=== PATIENT | female | born 1940 | race Caucasian/White ===

== ENCOUNTER 2024-07-23 16:42 | Inpatient (IN) | payer MEDICARE, SELFPAY ==
--- NOTE | 2024-07-23 16:45 | XRR_ITS ---
PROCEDURE INFORMATION: Exam: XR Left Hip Exam date and time: 07/23/2024 4:51 PM Age: 83 years old Clinical indication: Injury or trauma; Fall; Blunt trauma (contusions or hematomas); Left; Prior surgery; Surgery date: 6+ months; Surgery type: Lt hip; Additional info: Pain TECHNIQUE: Imaging protocol: Radiologic exam of the left hip. Views: 2 or 3 views hip with pelvis when performed. COMPARISON: CR XR hip LT 2-3V wo/w pel* [id number] 06/26/2019 9:41 AM FINDINGS: Bones/joints: Suspected left superior pubic ramus fracture. Intact left hip arthroplasty. Soft tissues: Unremarkable. XR/XR hip LT 2-3V wo/w pel* [id number] IMPRESSION: Suspected left superior pubic ramus fracture.
--- NOTE | 2024-07-23 16:49 | W.ED.GENADLT ---
Documented by User: Joshua Lugo DO 07/24/24 08:59 HPI - General Adult General: Chief complaint: ER Hold Stated complaint: Fall, Lac [place], L Hip pain Time Seen by Provider: 07/23/24 16:45 History of Present Illness: 83-year-old female presents to the emergency room after a ground-level mechanical fall at a local business she hit her forehead as she went down she denies any neck pain she is not on any anticoagulants. She is complaining some left hip pain she. Had a previous left hip arthroplasty. Denies any other injuries. No chest pain no abdominal pain. No dizziness lightheadedness or discomfort prior to the fall she simply stumbled as she came out of the bathroom Associated symptoms: Deny chest pain, dyspnea or rash Related Data Home Medications ?Medication ?Instructions ?Recorded ?Confirmed atorvastatin 20 mg tablet 20 mg PO DAILY 07/24/24 07/24/24 lisinopril 20 1 tab PO DAILY 07/24/24 07/24/24 mg-hydrochlorothiazide 12.5 mg tablet Review of Systems Const: Denies: fever(s) or chills Card: Denies: chest pain Resp: Denies: dyspnea GI: Denies: abdominal pain : Denies: dysuria, urinary frequency or urinary urgency Musc: Denies: neck pain or back pain Skin/Breast: Denies: rash Physical Exam Const: COMMON NORMALS: no acute distress GENERAL APPEARANCE: cooperative and comfortable ORIENTATION/CONSCIOUSNESS: Yes awake, Yes oriented to person, Yes oriented to place and Yes oriented to time HENMT: COMMON NORMALS: normocephalic, atraumatic and hearing grossly normal bilaterally HEAD & SCALP: normocephalic and atraumatic Resp: COMMON NORMALS: normal respiratory effort, No retractions, No use of accessory muscles and clear to auscultation bilaterally AUSCULTATION: clear to auscultation bilaterally Cardio: COMMON NORMALS: regular rate, regular rhythm and No murmurs present (Cardio) RATE: regular rate RHYTHM: regular rhythm GI: COMMON NORMALS: Soft to palpation and No hepatosplenomegaly present AUSCULTATION: Yes normoactive bowel sounds PALPATION: Yes Soft to palpation, No Tenderness to palpation present (GI), No Guarding due to palpation present (GI) and Yes No hepatosplenomegaly present Extremity: COMMON NORMALS: normal to inspection, capillary refill normal, no clubbing, cyanosis or edema, no calf tenderness and no pedal edema Neuro: SENSORIUM/ORIENTATION: Yes oriented to person, Yes oriented to place and Yes oriented to time Skin: COMMON NORMALS: no rashes or lesions noted GENERAL SKIN EXAM: no rashes or lesions noted Course Vital Signs: Vital signs: Vital Signs Temperature 97.8 F 07/24/24 07:45 Pulse Rate 62 07/24/24 07:56 Respiratory Rate 18 07/24/24 07:45 Blood Pressure 136/75 07/24/24 07:45 Pulse Oximetry 96 07/24/24 07:56 Oxygen Delivery Me thod Room Air 07/24/24 07:56 MDM - General Adult Medical Decision Making Plain film hip does not appear to have any abnormality to the previous arthroplasty there is question of a suprapubic rami fracture. CT has been done awaiting the radiology read reviewed myself it does appear to be there is a suprapubic rami fracture. Pending read by radiology. Care signed out to Dr. Rhodes at change of shift. See final notes for diagnosis and disposition. Patient remained hemodynamically stable 30 course. At rest she has almost no pain. When she tries to ambulate she has significant pain in the left pubic region consistent with nondisplaced fracture seen on x-ray and CT. I spoke with the hospitalist service who graciously agrees to admit the patient to be evaluated by PT, OT, and case management as I suspect she will require placement for the next week or 2 as she convalesces. She does not have adequate help in the home to provide her full assist as she transitions from bed to bedside commode. Patient shows good understanding and agrees to the plan Lab Data Radiology Impressions Hip/Pelvis X-Ray 07/23/24 16:45 IMPRESSION: Suspected left superior pubic ramus fracture. Cervical Spine CT 07/23/24 16:55 IMPRESSION: No acute findings. Head CT 07/23/24 16:55 IMPRESSION: 1. No acute findings. 2. Chronic ischemic changes noted Pelvis CT 07/23/24 17:18 IMPRESSION: Nondisplaced superior left pubic ramus fracture. Discharge Plan Discharge Patient Disposition: Placed in Observation Admit Provider: Corrie Carvalho Clinical Impression: Fracture of superior pubic ramus, Fall Sign Out Sign Out Data: Patient Sign Out occurred on 07/23/24 at 19:29. Patient's care was discussed, and care was transferred from Joshua Lugo DO to Jose Rhodes MD. Coding Level of Care Code ED Digital Production Artist for Chg Fwd Documented by User: Jose Rhodes MD 07/24/24 06:38 HPI - General Adult General: Chief complaint: ER Hold Stated complaint: Fall, Lac [place], L Hip pain Time Seen by Provider: 07/23/24 16:45 Related Data Home Medications ?Medication ?Instructions ?Recorded ?Confirmed atorvastatin 20 mg tablet 20 mg PO DAILY 07/24/24 07/24/24 lisinopril 20 1 tab PO DAILY 07/24/24 07/24/24 mg-hydrochlorothiazide 12.5 mg tablet Course Vital Signs: Vital signs: Vital Signs Temperature 97.8 F 07/24/24 07:45 Pulse Rate 62 07/24/24 07:56 Respiratory Rate 18 07/24/24 07:45 Blood Pressure 136/75 07/24/24 07:45 Pulse Oximetry 96 07/24/24 07:56 Oxygen Delivery Me thod Room Air 07/24/24 07:56 MDM - General Adult Medical Decision Making Patient remained hemodynamically stable 30 course. At rest she has almost no pain. When she tries to ambulate she has significant pain in the left pubic region consistent with nondisplaced fracture seen on x-ray and CT. I spoke with the hospitalist service who graciously agrees to admit the patient to be evaluated by PT, OT, and case management as I suspect she will require placement for the next week or 2 as she convalesces. She does not have adequate help in the home to provide her full assist as she transitions from bed to bedside commode. Patient shows good understanding and agrees to the plan Lab Data Radiology Impressions Hip/Pelvis X-Ray 07/23/24 16:45 IMPRESSION: Suspected left superior pubic ramus fracture. Cervical Spine CT 07/23/24 16:55 IMPRESSION: No acute findings. Head CT 07/23/24 16:55 IMPRESSION: 1. No acute findings. 2. Chronic ischemic changes noted Pelvis CT 07/23/24 17:18 IMPRESSION: Nondisplaced superior left pubic ramus fracture. All radiology interpretation(s) finalized by discharge Discharge Plan Discharge Patient Disposition: Placed in Observation Admit Provider: Corrie Carvalho Clinical Impression: Fracture of superior pubic ramus, Fall Sign Out Sign Out Data: Patient Sign Out occurred on 07/23/24 at 19:29. Patient's care was discussed, and care was transferred from Joshua Lugo DO to Jose Rhodes MD. Coding Level of Care Code ED Digital Production Artist for Trip Jiang
[2024-07-23 16:52] VITALS: BP 153/89; PULSE 83; RESP 14; TEMP 37.1; O2SAT 95; BMI 19.1
--- NOTE | 2024-07-23 16:55 | CTR_ITS ---
PROCEDURE INFORMATION: Exam: CT Cervical Spine Without Contrast Exam date and time: 07/23/2024 5:29 PM Age: 83 years old Clinical indication: Injury or trauma; Fall; Blunt trauma TECHNIQUE: Imaging protocol: Computed tomography of the cervical spine without contrast. Radiation optimization: All CT scans at this facility use at least one of these dose optimization techniques: automated exposure control; mA and/or kV adjustment per patient size (includes targeted exams where dose is matched to clinical indication); or iterative reconstruction. COMPARISON: CT head wo con* [id number] 07/23/2024 5:29 PM RADIATION DOSE METRICS: Total DLP (mGy-cm): 155.1 FINDINGS: Bones: The bony structures demonstrate diffuse osteopenia. Facet arthropathy can be seen at multiple levels. No fracture or subluxation noted. Lungs: Lung apices are normal. Soft tissues: Unremarkable. CT/CT cervical spin wo con* [id number] IMPRESSION: No acute findings.
--- NOTE | 2024-07-23 16:55 | CTR_ITS ---
PROCEDURE INFORMATION: Exam: CT Head Without Contrast Exam date and time: 07/23/2024 5:29 PM Age: 83 years old Clinical indication: Injury or trauma; Fall; Blunt trauma (contusions or hematomas) TECHNIQUE: Imaging protocol: Computed tomography of the head without contrast. Radiation optimization: All CT scans at this facility use at least one of these dose optimization techniques: automated exposure control; mA and/or kV adjustment per patient size (includes targeted exams where dose is matched to clinical indication); or iterative reconstruction. COMPARISON: No relevant prior studies available. RADIATION DOSE METRICS: Total DLP (mGy-cm): 1112.7 FINDINGS: Brain: There is prominent chronic periventricular white matter ischemic change. There is no evidence of mass effect, hemorrhage or infarct. Cerebral ventricles: No ventriculomegaly. No midline shift. Paranasal sinuses: Visualized sinuses are unremarkable. No fluid levels. Mastoid air cells: Visualized mastoid air cells are well aerated. Bones: Unremarkable. No acute fracture. Soft tissues: Unremarkable. CT/CT head wo con* [id number] IMPRESSION: 1. No acute findings. 2. Chronic ischemic changes noted
[2024-07-23 17:18] VITALS: BP 154/79; PULSE 85; O2SAT 95
--- NOTE | 2024-07-23 17:18 | CTR_ITS ---
PROCEDURE INFORMATION: Exam: CT Pelvis Without Contrast, Skeleton Exam date and time: 07/23/2024 5:36 PM Age: 83 years old Clinical indication: Injury or trauma; Fall; Blunt trauma (contusions or hematomas); Does not apply; Pelvic region; Prior surgery; Surgery date: 6+ months; Surgery type: Lt hip; Additional info: Suspected pubic rami fracture TECHNIQUE: Imaging protocol: Computed tomography of the pelvis without contrast. Exam focused on the skeleton. Radiation optimization: All CT scans at this facility use at least one of these dose optimization techniques: automated exposure control; mA and/or kV adjustment per patient size (includes targeted exams where dose is matched to clinical indication); or iterative reconstruction. COMPARISON: CR (PELVIS, ) 07/23/2024 4:51 PM RADIATION DOSE METRICS: Total DLP (mGy-cm): 331.08 FINDINGS: Bones/joints: Generalized osseous demineralization. Nondisplaced superior left pubic ramus fracture. No additional fractures. Intact left total hip arthroplasty. Soft tissues: Unremarkable. CT/CT pelvis wo con [id number] IMPRESSION: Nondisplaced superior left pubic ramus fracture.
[2024-07-23] MEDS: tetanus-diphtheria tox (adult) 0.5 mL SDV IM (17:48)
[2024-07-23 19:07] VITALS: BP 125/68; PULSE 86; O2SAT 96
[2024-07-23 21:00] VITALS: BP 132/72; PULSE 83; O2SAT 95
[2024-07-23 23:00] VITALS: BP 131/72; PULSE 81; O2SAT 95
[2024-07-24] VITALS (10 sets, daily range): BP systolic 122–157; BP diastolic 71–85; PULSE 62–95; RESP 17–18; TEMP 36.5–37.1; O2SAT 92–96
--- NOTE | 2024-07-24 01:20 | PM.HP ---
Providers/Chief Complaint Admitting Physician: Corrie Carvalho MD--- patient seen before 12 midnight Primary Care Provider: Nuris Roy Chief Complaint: Fall, Lac [place], L Hip pain History of Present Illness Minna Ochoa is a 83 year old female who is very independent of her activities of daily living patient sustained a mechanical fall with a fractured the left pubic ramus of her pelvic. This is a nonsurgical repair patient needed to heal with supported pain management, PT OT in a rehab TL she is able to be released to be by herself or with the supportive care of family members. Review of Systems Narrative: Generally patient states doing okay system review of 110 organ review with entirely unremarkable except for musculoskeletal with this fracture of the pubic ramus left Vitals/I&O/Wt Last Vital Signs Temp 98.7 F 07/23/24 16:52 Pulse 86 07/24/24 01:00 Resp 14 07/23/24 16:52 BP 130/75 07/24/24 01:00 Pulse Ox 94 07/24/24 01:00 O2 Del Method Room Air 07/23/24 23:00 07/23/24 07/23/24 07/24/24 14:59 22:59 06:59 Intake Total 0 / 0 Balance 0 / 0 Weight last 48 hrs Weight 55.338 kg Physical Exam Narrative: Generally patient is doing okay, denies complaint except for the left hip pain and is supportive with care for pain management HEENT normocephalic/atraumatic neck neck is supple cardiovascular heart is regular lungs are pretty much clear abdomen soft nontender nondistended unremarkable. The pelvics region is significant for pain with tenderness Neurology no focality A&P Assessment and plan (1) Fracture of superior pubic ramus: Admit to general medical floor Follow-up with pain management of the fracture pelvic Case management involved in discharge planning regarding rehab placement Must continue to treat and optimize (2) Fall: Status post mechanical fall - PT OT get patient stronger - Made the help of therapeutic case manager for arrangement regarding patient going to SNF or rehab to he will PDMP PDMP Reviewed: Not Reviewed Attestations Medical Necessity Statement*: I attest that the patient meets the criteria of observation status of stay for 23 hours Coding Level of Care Code 12740 Diagnoses Fracture of superior pubic ramus S32.519A Fall W19.XXXA Time Spent (min) 60
[2024-07-24] MEDS: sodium chloride 0.9% 1,000 ML 100 ML IV ×2 (01:24→10:43)
--- NOTE | 2024-07-24 06:05 | PC.NURSE ---
PT EXPRESSED CONCERN ABOUT STAYING IN HOSPITAL. PT REPORTS SHE WANTS TO LEAVE. NIGHT-SHIFT HOSPITALIST AWARE AND STATED SHE WILL LET DAY-SHIFT KNOW ABOUT PT CONCERN. PT UPDATED ABOUT THE CONVERSATION.
--- NOTE | 2024-07-24 06:58 | PC.NURSE ---
THIS NURSE ASSUMED CARE AT 0645.
[2024-07-24] MEDS: pantoprazole DR 40 mg Tablet PO (08:00)
[2024-07-24 09:15] LABS: Basophils % 0.1 %; Eosinophils % 0.1 %; Hematocrit 40.8 % (36-47); Lymphocytes # 0.8 10^3/uL (0.8-4.8); Lymphocytes % 9.3 %; Mean Corpuscular HGB Conc 33.1 g/dL (30-55); Mean Corpuscular Hemoglobin 31.3 pg (27-33); Mean Corpuscular Volume 94.7 fl (85-98); Mean Platelet Volume 9.4 fL (7.4-10.4); Monocytes # 0.8 10^3/uL (0.2-0.9); Monocytes % 8.6 %; Neutrophils # 7.22 10^3/uL (1.8-7.7); Neutrophils % 81.4 %; Nucleated Red Blood Cells % 0 %; Platelet Count 199 10^3/cmm (157-399); Red Blood Count 4.31 10^6/uL (3.85-5.65); Red Cell Distribution Width 14.4 % (12.1-15.1); White Blood Count 8.86 10^3/uL (3.29-11.43)
[2024-07-24 09:27] LABS: Alanine Aminotransferase 18 U/L (0-33); Alkaline Phosphatase 62 U/L (35-105); Anion Gap 12.8 (5-19); Aspartate Amino Transferase 24 U/L (0-32); Blood Urea Nitrogen 10 mg/dL (8-23); Carbon Dioxide 27 mmol/L (22-29); Chloride 101 mmol/L (98-107); Creatinine Clr Calc Pharmacy 49.7077; Globulin 2.3 g/dL (1.3-4.6); Glucose 148 mg/dL (65-115); Osmolality Calculated 286 mOsm/kg (285-295); Potassium 3.8 mmol/L (3.5-5.1); Sodium 137 mmol/L (136-145); Total Bilirubin 0.8 mg/dL (0.15-1.2); Total Protein 6.3 g/dL (6.6-8.7)
--- NOTE | 2024-07-24 10:14 | PC.CHAP ---
Pastoral Care Encounter/Spiritual Assessment Type of Contact [] Declined corn husker machine operator visit [] Patient/Family/Request visit [] Outpatient visit [] Follow-up visit [] Physician referral [] Code/Alert [x] Routine visit [] Staff referral [] Actively dying [] Patient sleeping [] Family support [] [] Out of room [] Palliative care [] [] Receiving care in room [] Pre-surgical visit [] Trauma [] Long length of stay [] ICU visit [] Other: Relational/Emotional Strength [x] Patient feels connected with others/family/visitors/staff [] Distress [] Loneliness/isolation [] Abandonment Spirituality of Patient [x] Person of Adeline [] Attends Druze of their Adeline [x] Believes in Prayer [] Reads Bible or Orthodox materials [] There are Spiritual issues to be addressed French Pastry Cook Interventions [x] Prayer [x] Active listening [x] Non-anxious presence [x] Spiritual/emotional support [] Crisis/trauma care [] Spiritual counseling [] Bereavement support [] Provided bereavement packet [] Provided Bible/devotional materials [] Provided toy/stuffed animal, coloring book to patient or family member [] Provided Communion [] Anointing/Naturita [] Salvation [x] Completed spiritual assessment [] Other: Impact on Illness or Injury [] Angry [] Fearful [] Anxious [] Often cries [] Exhaustion [] Unable to work [] Unable to attend church [] Unable to walk/stand [] Unable to read [] Unable to drive [] Unable to eat/drink [] Unable to sleep [] Unable to be with family [] Patient intubated [] Other: Summary Time spent with patient 5 min
--- NOTE | 2024-07-24 11:04 | P.PN_ITS ---
Subjective 2 Subjective: Patient was seen in the room working with PT. She ambulated to the door w/ PT and down in the chair. She is sitting in a chair at this time. She keeps asking me who I am. When I told her that that I am her physician, she thought that I was the C Unix Developer. She is keeps saying that I am a teacher. She is AO to self and place. She knows that it is July, but she does not know that year. She denies dizzy, light headedness, fever, chills, CP, palpitations, SOB, abd pain, n/v, symptoms. She complains of pain in the L. leg. Vitals/I&O/Wt Last Vital Signs Temp 97.8 F 07/24/24 07:45 Pulse 62 07/24/24 07:56 Resp 18 07/24/24 07:45 BP 136/75 07/24/24 07:45 Pulse Ox 96 07/24/24 07:56 O2 Del Method Room Air 07/24/24 07:56 07/23/24 07/24/24 07/24/24 22:59 06:59 14:59 Intake Total 0 / 0 1051.667 / 1051.667 Output Total 300 / 300 Balance 0 / 0 751.667 / 751.667 Weight last 48 hrs Weight 55.338 kg Physical Exam 2 Narrative: Constitutional: GENERAL APPEARANCE: cooperative, comfortable and appears older than stated age; not combative, not disheveled, not ill appearing. Frail appearing HENT: HEAD & SCALP: normocephalic and atraumatic; NOSE: external nose not normal EXTERNAL EAR: no external ears normal MOUTH: Normal oral and palatal mucosa present THROAT: posterior oropharynx normal Eye: PERRL, EOMI, normal conjunctiva b/l Neck: normal visual inspection, trachea midline, No anterior neck swelling, No tracheal deviation, No tracheostomy present, no submandibular swelling, Thyroid normal , cervical ROM normal Lymph: no cervical, supraclavicular LAD Resp: no use of accessory muscles, CTAB, no w/r/r Cardio: RRR, no m/r/g, or clicks. 2+ radial and DP pulses. GI: normoactive bowel sounds, non-tender, non-distended, no guarding, no rigidity, no rebound tenderness, no hepatosplenomegaly. : (-) Galarza in place draining urine, (-) CVA tenderness Back/Pelvis: Deferred Extremity: No clubbing, No cyanosis and No edema Neuro: AO to person, place and time. CN normal except as noted. Normal gait present Normal motor muscle tone present throughout. No tremor noted. No motor abnormalities present. No motor fasciculations present Psych: APPEARANCE: Yes grossly normal ATTITUDE: Yes calm and Yes engaged ACTIVITY/MOTOR BEHAVIOR: Yes appropriate eye contact SPEECH: Yes normal speech MOOD & AFFECT: Yes euthymic mood THOUGHT PROCESS: Tangential THOUGHT CONTENT: Ruminations ATTENTION/CONCENTRATION: Yes attention grossly intact MEMORY/COGNITION: Poor short-term memory Data 07/24/24 09:01 07/24/24 09:01 A&P Assessment and plan (1) Fracture of superior pubic ramus: (2) Fall: (3) HTN (hypertension): (4) HLD (hyperlipidemia): Plan Ms. Montana is an 83yo woman w/ HTN, HLD, who was brought to the ED on 08/20/2019 for after she experienced a mechanical fall while mowing the lawn. In the ED, her CT head and CT C-spine were negative. Her hip and pelvic x-ray showed suspicion of a left superior pubic ramus fracture. Her pelvic CT showed a nondisplaced superior left pubic ramus fracture. She was admitted for further management. On admission, the orthopedic surgeon and the PT/OT were consulted. # Nondisplaced superior left pubic ramus fracture: - Orthopedic surgeon on-call consulted. PT/OT ordered. Tramadol for pain. #Fall #Possible Dementia: She will need outpatient evaluation for her very visible decline #HTN: On lisinopril-HCTZ daily. Hold at this time. #HLD: On Atorvastatin Daily. DVT ppx: Heparin subq PDMP PDMP Reviewed: Not Reviewed Attestations 2 Medical Necessity Statement*: Patient needs to be hospitalized for >2 midnights for her Nondisplaced superior left pubic ramus fracture: Diagnoses Fracture of superior pubic ramus S32.519A Fall W19.XXXA HTN (hypertension) I10 HLD (hyperlipidemia) E78.5
[2024-07-24] MEDS: polyethylene glycol 3350 Pkt 17 gm PO (13:16)
--- NOTE | 2024-07-24 17:28 | PM.CONSULT ---
Providers/Reason For Consult Consulting Physician/Specialty*: Paul Burrell MD Orthopedic surgery Reason for Consult*: Left pubic rami fracture Attending Physician: Corrie Carvalho MD Primary Care Provider: Nuris Roy History of Present Illness History of Present Illness Minna Ochoa is a 83 year old female who was recently admitted to the hospital for a head injury and laceration. However on workup in the ED she is complaining of left hip pain x-rays as well as a CT scan demonstrate pubic rami fracture on the left. X-ray also demonstrated a previous total hip arthroplasty where she had had a fracture and redone and wound had healed by now. CT scan did not demonstrate any type of bony disruption of the proximal femur or around the total hip arthroplasty. Review of Systems Narrative: Generally patient states doing okay system review of 110 organ review with entirely unremarkable except for musculoskeletal with this fracture of the pubic ramus left Const: Denies: fever(s) or chills Card: Denies: chest pain Resp: Denies: dyspnea GI: Denies: abdominal pain : Denies: dysuria, urinary frequency or urinary urgency Musc: Denies: neck pain or back pain Skin/Breast: Denies: rash Medications/Allergies Home Medications ?Medication ?Instructions ?Recorded ?Confirmed ?Last Taken ?Type atorvastatin 20 mg tablet 20 mg PO DAILY 07/24/24 07/24/24 Unknown History lisinopril 20 1 tab PO DAILY 07/24/24 07/24/24 Unknown History mg-hydrochlorothiazide 12.5 mg tablet Current Medications Generic Name Dose Route Start Last Admin Trade Name Freq PRN Reason Stop Dose Admin Heparin Sodium (Porcine) 5,000 unit 07/24/24 14:00 07/24/24 14:39 Heparin 5,000 Unit/Ml Inj 1 Ml SUBCUT Not Given Q12H JUDITH Sodium Chloride 1,000 mls @ 100 mls/hr 07/24/24 01:00 07/24/24 10:43 Sodium Chloride 0.9% IV 07/24/24 20:59 100 mls/hr .Q10H JUDITH Administration Pantoprazole Sodium 40 mg 07/24/24 09:00 07/24/24 08:[address] 40 Mg Tablet PO 40 mg DAILY JUDITH Administration Polyethylene Glycol 17 gm 07/24/24 13:00 07/24/24 13:16 Polyethylene Glycol 3350 Pkt 17 Gm PO 17 gm DAILY JUDITH Administration Vitals/I&O/Wt Last Vital Signs Temp 97.7 F 07/24/24 15:19 Pulse 88 07/24/24 15:19 Resp 17 07/24/24 15:19 BP 131/85 07/24/24 15:19 Pulse Ox 94 07/24/24 15:19 O2 Del Method Room Air 07/24/24 15:19 07/24/24 07/24/24 07/24/24 06:59 14:59 22:59 Intake Total 1291.667 / 1291.667 Output Total 300 / 300 Balance 991.667 / 991.667 Weight last 48 hrs Weight 122 lb Physical Exam Narrative: On orthopedic exam patient is sitting up in the bed visiting with family. She points to her proximal thigh as area of pain however palpation over her pelvis is where the pain is at over the pubic rami. No other gross abnormalities noted Data 07/24/24 09:01 07/24/24 09:01 A&P Assessment and plan (1) Pubic ramus fracture: Patient with superior pubic ramus fracture possibly an inferior ramus fracture also in the left Patient went previous fracture about total hip arthroplasty that is gone on to heal well no signs of further fracture in that area Plan Recommendations at this time is that she perform walker ambulation only partial weightbearing on the left side for the next 2 weeks. She should only bear weight that is tolerable, however is painful she should back off even further on how much weight she applies to her left lower extremity. Repeat x-rays should be done of her pelvis in about 2 weeks to evaluate healing of the pubic ramus fracture. PDMP PDMP Reviewed: Not Reviewed Consult Attestations Medical Necessity Statement: Patient may need pain control. Further evaluation of head injury. Coding Level of Care Code Acute Code for Chg Fwd Diagnoses Closed fracture of ramus of left pubis, initial encounter S32.592A Encounter type: initial encounter Fracture type: closed Laterality: left
[2024-07-25] MEDS: heparin 5,000 unit/mL INJ 1 mL 5000 UNIT SUBCUT (01:53)
[2024-07-25 04:00] VITALS: BP 150/79; PULSE 79; RESP 15; TEMP 36.7; O2SAT 93
[2024-07-25 06:40] LABS: Basophils % 0.4 %; Eosinophils # 0.1 10^3/uL (0.0-0.8); Eosinophils % 0.8 %; Hematocrit 35.9 % (36-47); Lymphocytes # 1.2 10^3/uL (0.8-4.8); Mean Corpuscular HGB Conc 33.1 g/dL (30-55); Mean Corpuscular Hemoglobin 31.1 pg (27-33); Mean Corpuscular Volume 93.7 fl (85-98); Monocytes # 0.8 10^3/uL (0.2-0.9); Monocytes % 10.4 %; Neutrophils # 5.18 10^3/uL (1.8-7.7); Neutrophils % 72.1 %; Nucleated Red Blood Cells % 0 %; Platelet Count 155 10^3/cmm (157-399); Red Blood Count 3.83 10^6/uL (3.85-5.65); Red Cell Distribution Width 14.5 % (12.1-15.1); White Blood Count 7.19 10^3/uL (3.29-11.43)
[2024-07-25 07:01] LABS: Alanine Aminotransferase 13 U/L (0-33); Albumin Level 3.3 g/dL (3.5-5.2); Alkaline Phosphatase 47 U/L (35-105); Anion Gap 11.6 (5-19); Aspartate Amino Transferase 18 U/L (0-32); Blood Urea Nitrogen 7 mg/dL (8-23); Calcium 8.5 mg/dL (8.5-10.5); Carbon Dioxide 23 mmol/L (22-29); Chloride 108 mmol/L (98-107); Creatinine Clr Calc Pharmacy 49.0822; Globulin 1.8 g/dL (1.3-4.6); Glucose 97 mg/dL (65-115); Magnesium 2.1 mg/dL (1.7-2.3); Osmolality Calculated 286 mOsm/kg (285-295); Phosphorus 2.3 mg/dL (2.5-4.5); Potassium 3.6 mmol/L (3.5-5.1); Sodium 139 mmol/L (136-145); Total Bilirubin 0.7 mg/dL (0.15-1.2); Total Protein 5.1 g/dL (6.6-8.7)
[2024-07-25 07:02] LABS: INR 1.23 (0.8-1.2)
[2024-07-25 07:03] LABS: Partial Thromboplastin Time 38.2 SECONDS (23.9-36.7)
[2024-07-25] MEDS: pantoprazole DR 40 mg Tablet PO (07:37)
[2024-07-25] MEDS: polyethylene glycol 3350 Pkt 17 gm PO (07:42)
[2024-07-25 08:13] VITALS: BP 159/85; PULSE 84; RESP 18; TEMP 36.9; O2SAT 94
--- NOTE | 2024-07-25 10:26 | PM.DCS ---
Discharge Providers Date of Admission: 07/24/24 11:16 Date of Discharge: July 25, 2024 Attending Provider at Admission: Corrie Carvalho MD Attending Provider at Discharge: Priti Floyd MD Primary Care Provider: Nuris Roy Diagnoses at Discharge Discharge Diagnosis (1) Fracture of superior pubic ramus: Status: Acute (2) Fall: Status: Acute (3) HTN (hypertension): Status: Acute (4) HLD (hyperlipidemia): Status: Acute Reason for Visit Reason for Visit: Fall, [place], L Hip pain Hospital Course Hospital Course In summary, Ms Minna Ochoa is a 83 year old female who presented for further evaluation after mechanical fall where she was found to have a fracture of the left pubic ramus. She was admitted for further evaluation and management Patient was evaluated by orthopedic surgery and conservative management recommended. She was evaluated by physical therapy and deemed safe to be discharged home with physical therapy. Per orthopedic surgery, recommendations at this time is that she perform walker ambulation only partial weightbearing on the left side for the next 2 weeks. Repeat x-rays should be done of her pelvis in about 2 weeks to evaluate healing of the pubic ramus fracture. She will follow with orthopedic surgery outpatient. Physical Exam Narrative: General -Awake, alert, no acute distress HEENT-normocephalic, atraumatic, neck is supple Lungs-clear to auscultation bilaterally, no wheezes or crackles CVS -S1-S2, regular rate and rhythm Abdomen -soft, nontender, normal bowel sounds Extremities-no pedal edema Neurology -no gross focal deficits Discharge Data Studies Completed and Pending Completed Studies During Hospitalization Category Date Time Status CT cervical spin wo con* [id number] Stat Cat Scan 07/23/24 16:[address] head wo con* [id number] Stat Cat Scan 07/23/24 16:[address] pelvis wo con [id number] Stat Cat Scan 07/23/24 17:18 Completed XR hip LT 2-3V wo/w pel* [id number] Stat Exams 07/23/24 16:45 Completed Radiology Impressions Hip/Pelvis X-Ray 07/23/24 16:45 IMPRESSION: Suspected left superior pubic ramus fracture. Cervical Spine CT 07/23/24 16:55 IMPRESSION: No acute findings. Head CT 07/23/24 16:55 IMPRESSION: 1. No acute findings. 2. Chronic ischemic changes noted Pelvis CT 07/23/24 17:18 IMPRESSION: Nondisplaced superior left pubic ramus fracture. Laboratory Results WBC 7.19 10^3/uL (3.29-11.43) 07/25/24 06:03 RBC 3.83 10^6/uL (3.85-5.65) L 07/25/24 06:03 Hgb 11.90 g/dL (11.27-16.99) 07/25/24 06:03 Hct 35.9 % (36-47) L 07/25/24 06:03 MCV 93.7 fl (85-98) 07/25/24 06:03 MCH 31.1 pg (27-33) 07/25/24 06:03 MCHC 33.1 g/dL (30-55) 07/25/24 06:03 RDW 14.5 % (12.1-15.1) 07/25/24 06:03 Plt Count 155 10^3/cmm (157-399) L 07/25/24 06:03 MPV 10.0 fL (7.4-10.4) 07/25/24 06:03 Neut % (Auto) 72.1 % 07/25/24 06:03 Lymph % (Auto) 16.0 % 07/25/24 06:03 Miller % (Auto) 10.4 % 07/25/24 06:03 Eos % (Auto) 0.8 % 07/25/24 06:03 Baso % (Auto) 0.4 % 07/25/24 06:03 Neut # (Auto) 5.18 10^3/uL (1.8-7.7) 07/25/24 06:03 Lymph # (Auto) 1.2 10^3/uL (0.8-4.8) 07/25/24 06:03 Miller # (Auto) 0.8 10^3/uL (0.2-0.9) 07/25/24 06:03 Eos # (Auto) 0.1 10^3/uL (0.0-0.8) 07/25/24 06:03 Baso # (Auto) 0.0 10^3/uL (0.0-0.1) 07/25/24 06:03 Nucleated RBC % (auto) 0 % 07/25/24 06:03 Nucleated RBCs # 0.0 /100WBC 07/25/24 06:03 PT 16.30 SECONDS (12.1-14.9) H 07/25/24 06:03 INR 1.23 (0.8-1.2) H 07/25/24 06:03 APTT 38.2 SECONDS (23.9-36.7) H 07/25/24 06:03 Sodium 139 mmol/L (136-145) 07/25/24 06:03 Potassium 3.6 mmol/L (3.5-5.1) 07/25/24 06:03 Chloride 108 mmol/L (98-107) H 07/25/24 06:03 Carbon Dioxide 23 mmol/L (22-29) 07/25/24 06:03 Anion Gap 11.6 (5-19) 07/25/24 06:03 BUN 7 mg/dL (8-23) L 07/25/24 06:03 Creatinine 0.6 mg/dL (0.5-0.9) 07/25/24 06:03 GFR Calculation Not Reportable 07/25/24 06:03 Glucose 97 mg/dL (65-115) 07/25/24 06:03 Calculated Osmolality 286 mOsm/kg (285-295) 07/25/24 06:03 Calcium 8.5 mg/dL (8.5-10.5) 07/25/24 06:03 Phosphorus 2.3 mg/dL (2.5-4.5) L 07/25/24 06:03 Magnesium 2.1 mg/dL (1.7-2.3) 07/25/24 06:03 Total Bilirubin 0.7 mg/dL (0.15-1.2) 07/25/24 06:03 AST 18 U/L (0-32) 07/25/24 06:03 ALT 13 U/L (0-33) 07/25/24 06:03 Alkaline Phosphatase 47 U/L (35-105) 07/25/24 06:03 Total Protein 5.1 g/dL (6.6-8.7) L 07/25/24 06:03 Albumin 3.3 g/dL (3.5-5.2) L 07/25/24 06:03 Globulin 1.8 g/dL (1.3-4.6) 07/25/24 06:03 Vitals Last Vital Signs Temp 98.5 F 07/25/24 08:13 Pulse 84 07/25/24 08:13 Resp 18 07/25/24 08:13 BP 159/85 07/25/24 08:13 Pulse Ox 94 07/25/24 08:13 O2 Del Method Room Air 07/25/24 08:13 Discharge Plan Discharge Patient Disposition: Home Health Service Condition: Stable Prescriptions: Continued atorvastatin 20 mg tablet 20 mg PO DAILY lisinopril-hydrochlorothiazide 20-12.5 mg tablet 1 tab PO DAILY Discharge Orders: Discharge Order (Routine); Ordered 07/25/24 Ordered By: Priti Floyd Other Ambulatory Orders: DME: Walker (Order) Location: None Selected Ordered By: Corrie Carvalho Referrals: [facility] [Outside] Paul Burrell MD [Physician, Orthopedics] - 2 weeks Discharge Diet: Usual diet Patient Instructions: Pelvic Fracture (GEN), Opioid Safety Activity Restrictions/Additional Instructions: Perform walker ambulation only partial weightbearing on the left side for the next 2 weeks. She should only bear weight that is tolerable, however if painful she should back off even further on how much weight she applies to her left lower extremity. Repeat x-rays should be done of her pelvis in about 2 weeks to evaluate healing of the pubic ramus fracture. Discharge Attestations Time Spent in Discharge Care*: less than 30 min Quality Metrics Clinical Quality Measures [ No reported AMI, CVA or VTE this stay] Coding Level of Care Code Acute Code for Chg Fwd Diagnoses Fracture of superior pubic ramus S32.519A Fall W19.XXXA HTN (hypertension) I10 HLD (hyperlipidemia) E78.5
[2024-07-25 11:11] VITALS: BP 162/83; PULSE 93; RESP 19; TEMP 36.8; O2SAT 94
[2024-07-25 11:33] VITALS: BP 162/83; PULSE 93; RESP 19; TEMP 36.8; O2SAT 94
== END 2024-07-25 11:36 | disposition home health service (06) | DRG 536 ==
LOC: ER 22:10 → ER IP 07-24 00:41 → MEDSURG 07-24 06:54
PROVIDERS: Internal Medicine; Admitting Provider Internal Medicine; Emergency Provider Student in an Organized Health Care Education/Training Program; PCP Physician Assistant; Visit Provider Student in an Organized Health Care Education/Training Program
DX: S32.592A Other specified fracture of left pubis, initial encounter for closed fracture (principal); S01.81XA Laceration without foreign body of other part of head, initial encounter; W01.10XA Fall on same level from slipping, tripping and stumbling with subsequent striking against unspecified object, initial encounter; I10 Essential (primary) hypertension; E78.5 Hyperlipidemia, unspecified; F03.90 Unspecified dementia, unspecified severity, without behavioral disturbance, psychotic disturbance, mood disturbance, and anxiety; Z96.642 Presence of left artificial hip joint
CPT/HCPCS: 36415; 70450; 72125; 72192; 73502; 80053; 83735; 84100; 85025; 85610; 85730; 90471; 90714; 96372; 97110; 97116; 97161; 97166; 97530; 97535; 99285; G0378; J1644; J7030; J9999

== ENCOUNTER → 2024-07-29 13:41 | Outpatient (BNVA) | payer MEDICARE, SELFPAY | PROVIDERS: PCP Physician Assistant; Visit Provider Orthopaedic Surgery | DX: S32.512D Fracture of superior rim of left pubis, subsequent encounter for fracture with routine healing (principal); X58.XXXD Exposure to other specified factors, subsequent encounter | CPT/HCPCS: 72190; 99213 ==

== ENCOUNTER → 2024-08-12 08:39 | Outpatient (BNVA) | payer MEDICARE, SELFPAY | PROVIDERS: PCP Physician Assistant; Visit Provider Orthopaedic Surgery | DX: S32.512D Fracture of superior rim of left pubis, subsequent encounter for fracture with routine healing (principal); X58.XXXD Exposure to other specified factors, subsequent encounter | CPT/HCPCS: 72190; 99213 ==

== ENCOUNTER → 2024-12-25 08:46 | Outpatient (BNVA) | payer MEDICARE, SELFPAY | PROVIDERS: PCP Physician Assistant; Visit Provider Podiatrist Foot & Ankle Surgery | DX: L84 Corns and callosities (principal); M20.11 Hallux valgus (acquired), right foot | CPT/HCPCS: 99203 ==